=== PATIENT | male | born 1950 | race Caucasian/White ===

== ENCOUNTER 2019-02-13 12:55 | Inpatient (IN) | payer MEDICARE, MEDICAID ==
[~2019-02-13] VITALS: Ht 177.8 cm; Wt 141.4 kg
[2019-02-13] VITALS (10 sets, daily range): BP systolic 69–127; BP diastolic 22–74
[~2019-02-13 12:55] MED LIST: ATEN-169 PO; DILT180C66 PO; FOLI1CAP PO; FURO40TA4 PO; GLIM4TAB4 PO; POTA8CAP20 PO; SIMV80TA2 PO; VITC500T PO; [UNRECOGNIZED DRUG - CODE] PO
[2019-02-13] MEDS ORDERED: diltiazem 5mg/ml 5ml inj. IV ONE ×2 (13:30→14:25)
[2019-02-13] MEDS ORDERED: piperacillin/tazo 3.375gm/50ml 50 ML IV ONE (13:40)
[2019-02-13] MEDS ORDERED: vancomycin/NS 1 GM ADD-VANTAGE 250 ML IV ONE (13:40)
[2019-02-13 14:03] LABS: PARTIAL THROMBOPLASTIN TIME 21 SECONDS (22-32)
[2019-02-13 14:04] LABS: ALANINE AMINOTRANSFERASE 54 U/L (12-78); ALBUMIN 2.1 G/DL (3.4-5.0); ALBUMIN/GLOBULIN RATIO 0.4 (1.1-1.5); ALKALINE PHOSPHATASE 166 IU/L (46-116); ANION GAP 10 (8-16); BILIRUBIN,TOTAL 0.8 MG/DL (0.1-1.0); BLOOD UREA NITROGEN 51 MG/DL (7-18); BUN/CREATININE RATIO 7.3 (5.4-32.0); CALCIUM 8.9 MG/DL (8.5-10.1); CHLORIDE 93 MMOL/L (99-107); CREATININE 7.03 MG/DL (0.60-1.10); GLUCOSE 171 MG/DL (70-104); SODIUM 129 MMOL/L (135-145); TOTAL CARBON DIOXIDE 26.5 MMOL/L (24-32); TOTAL PROTEIN 7.9 G/DL (6.4-8.2); eGFR 8 ML/MIN
[2019-02-13 14:07] LABS: ASPARTATE AMINO TRANSFERASE 60 U/L (10-37); POTASSIUM 4.9 MMOL/L (3.5-5.1)
[2019-02-13 14:14] LABS: MAGNESIUM 1.9 MG/DL (1.5-2.4)
[2019-02-13] MEDS ORDERED: diltiazem-D5W 125mg/125ml 125 ML IV SCH (14:25)
[2019-02-13 14:27] LABS: C-REACTIVE PROTEIN 28.92 MG/DL (0.0-0.5)
[2019-02-13] MEDS ORDERED: diltiazem-NS 100mg/100ml 100 ML IV SCH (14:28)
[2019-02-13 14:42] LABS: BASOPHILS # (AUTO) 0.3 X10'3 (0-0.2); BASOPHILS % (AUTO) 0.9 % (0-1); EOSINOPHILS % (AUTO) 0.1 % (0-6); HEMATOCRIT 33.5 % (42.0-52.0); HEMOGLOBIN 11.2 g/dl (14.0-17.9); LYMPHOCYTES # (AUTO) 0.9 X10'3 (1.1-4.8); LYMPHOCYTES % (AUTO) 2.5 % (21-51); MEAN CORPUSCULAR HEMOGLOBIN 30.7 PG (27.0-31.0); MEAN CORPUSCULAR HGB CONC 33.3 g/dL (33.0-36.5); MEAN PLATELET VOLUME 8.6 FL (7.4-10.4); MONOCYTES # (AUTO) 2.9 X10'3 (0-0.9); NEUTROPHILS # (AUTO) 32.7 X10'3 (1.8-7.7); NEUTROPHILS % (AUTO) 88.5 % (42-75); PLATELET COUNT 380 X10'3 (140-440); RED BLOOD COUNT 3.64 X10'6 (4.70-6.10); RED CELL DISTRIBUTION WIDTH 14.2 % (11.5-14.5)
[2019-02-13 14:43] LABS: WHITE BLOOD COUNT 36.9 X10'3 (4.5-11.0)
[2019-02-13] MEDS ORDERED: INSU100V11 SQ (15:13)
[2019-02-13] MEDS ORDERED: INSU100V9 SQ (15:13)
[2019-02-13] MEDS ORDERED: acetaminophen 325mg tablet PO PRN (15:25)
[2019-02-13] MEDS ORDERED: bisacodyl 10mg suppository rectal RC PRN (15:25)
[2019-02-13] MEDS ORDERED: ondansetron/PF 4mg/2ml inj IV ONE (15:30)
[2019-02-13] MEDS: ondansetron/PF 4mg/2ml inj IV PRN (15:32)
[2019-02-13 15:39] LABS: TOTAL CELLS COUNTED 100
[2019-02-13 15:40] LABS: PLATELET ESTIMATE NORMAL; ROULEAUX 1+
--- NOTE | 2019-02-13 15:46 | NUR ---
Spoke with RUNNER MAN Nemi and gave report on pt's current status. Nemi asked for pt to be made NPO and for preop checklist to be completed as possible.
[2019-02-13 15:47] LABS: HEMOGLOBIN A1C 6.5 % (4.5-6.2)
--- NOTE | 2019-02-13 15:55 | NUR ---
Used surgical prep wipes on pt's L leg from below the thigh to toes.
[2019-02-13] MEDS ORDERED: iohexol 300mg/ml 100ml inj. ONE (16:07)
--- NOTE | 2019-02-13 16:22 | NUR ---
Spoke with MD Spears about pt's room assignment as his admit order was for ortho/neuro and non-tele. MD Spears ordered pt to PCU with tele. Pt has [employer] running.
--- NOTE | 2019-02-13 16:55 | NUR ---
Patient in room ED 12. I have received report from Fernie GOMEZ and had the opportunity to ask questions and assume patient care.
--- NOTE | 2019-02-13 16:55 | NUR ---
Received patient from ED. Patient vitals taken and stable. Bedside monitor placed, Cardizem drip running. Patient oriented to room and call light.
[2019-02-13] MEDS ORDERED: ringers solution, lacted 1,000 ML IV SCH (16:57)
[2019-02-13] MEDS ORDERED: morphine 4 MG/ML inj SYRINge IV PRN ×2 (17:00)
[2019-02-13] MEDS ORDERED: proCHLORperazine 10 MG/2 ml inj IV PRN (17:00)
[2019-02-13] MEDS ORDERED: ondansetron/PF 4mg/2ml inj IV PRN (17:00)
[2019-02-13] MEDS ORDERED: meperidine/PF 25mg/ml syringe IV PRN ×3 (17:00)
--- NOTE | 2019-02-13 18:08 | NUR ---
Problems reprioritized. Patient report given, questions answered & plan of care reviewed with Nilesh RN.
--- NOTE | 2019-02-13 18:15 | NUR ---
Patient in room PCU 3009. I have received report from Yen Porras RN and had the opportunity to ask questions and assume patient care.
[2019-02-13] MEDS ORDERED: ePHEDrine 50MG/ML INJ. ONE (19:02)
--- NOTE | 2019-02-13 19:05 | NUR ---
pt taken off unit to OR with OR staff.
[2019-02-13] MEDS ORDERED: fentaNYL/PF 50MCG/1 ML 2ML syringe ONE (19:20)
[2019-02-13] MEDS ORDERED: MIDAZolam 5mg/5ml vial ONE (19:22)
[2019-02-13] MEDS ORDERED: albumin (Human) 5% 250ml 500 ML IV ONE (20:40)
[2019-02-13] MEDS ORDERED: albumin (Human) 5% 250ml 250 ML IV ONE (20:50)
[2019-02-13] MEDS ORDERED: temazepam 15mg capsule PO PRN (21:00)
[2019-02-13] MEDS ORDERED: albumin (human) 25% 100 ML IV solution IV ONE ×2 (21:00)
[2019-02-13 21:27] LABS: BASOPHILS # (AUTO) 0.1 X10'3 (0-0.2); BASOPHILS % (AUTO) 0.4 % (0-1); EOSINOPHILS % (AUTO) 0.2 % (0-6); HEMATOCRIT 27.6 % (42.0-52.0); HEMOGLOBIN 9.4 g/dl (14.0-17.9); LYMPHOCYTES # (AUTO) 1.3 X10'3 (1.1-4.8); LYMPHOCYTES % (AUTO) 4.6 % (21-51); MEAN CORPUSCULAR HGB CONC 33.9 g/dL (33.0-36.5); MEAN CORPUSCULAR VOLUME 91.5 FL (78-98); MEAN PLATELET VOLUME 8.4 FL (7.4-10.4); MONOCYTES # (AUTO) 2.4 X10'3 (0-0.9); MONOCYTES % (AUTO) 8.7 % (2-12); NEUTROPHILS # (AUTO) 23.5 X10'3 (1.8-7.7); NEUTROPHILS % (AUTO) 86.1 % (42-75); PLATELET COUNT 326 X10'3 (140-440); RED BLOOD COUNT 3.02 X10'6 (4.70-6.10); RED CELL DISTRIBUTION WIDTH 14.3 % (11.5-14.5)
[2019-02-13 21:31] LABS: WHITE BLOOD COUNT 27.3 X10'3 (4.5-11.0)
[2019-02-13 21:39] LABS: ALANINE AMINOTRANSFERASE 40 U/L (12-78); ALBUMIN/GLOBULIN RATIO 0.5 (1.1-1.5); ALKALINE PHOSPHATASE 123 IU/L (46-116); ANION GAP 8 (8-16); ASPARTATE AMINO TRANSFERASE 34 U/L (10-37); BILIRUBIN,TOTAL 0.7 MG/DL (0.1-1.0); BLOOD UREA NITROGEN 55 MG/DL (7-18); BUN/CREATININE RATIO 7.3 (5.4-32.0); CALCIUM 7.7 MG/DL (8.5-10.1); CHLORIDE 97 MMOL/L (99-107); CREATININE 7.49 MG/DL (0.60-1.10); GLUCOSE 183 MG/DL (70-104); POTASSIUM 4.6 MMOL/L (3.5-5.1); SODIUM 131 MMOL/L (135-145); TOTAL CARBON DIOXIDE 26.2 MMOL/L (24-32); TOTAL PROTEIN 6.1 G/DL (6.4-8.2); eGFR 7 ML/MIN
[2019-02-13 21:43] LABS: TROPONIN I 0.29 NG/ML (0.0-0.05)
[2019-02-13] MEDS ORDERED: normal saline 1000ml 1,000 ML IVB ONE (21:52)
--- NOTE | 2019-02-13 22:17 | NUR ---
Patient arrived to unit via hospital bed accompanied by OR staff and anesthesiologist at 2029. BP low via automatic bp cuff, currently 69/32. Anesthesiologist Arthur SÁNCHEZ at bedside, order given for 2 bottles 50% albumin. MD stated to place patient in trendelenberg position, administered 1ml ephedrine via PIV, BP still low after 5 minute BP check. April Melissa SEED TESTER called and notified of patient's arrival and current hypotension. Patient otherwise in no apparent distress, alert/oriented x4, opens eyes spontaneously and follows commands. No pain at this time, patient reports no sensation below his hips. HR in mid 80s in atrial fibrillation, currently on cardizem drip. left bedside, April Melissa SEED TESTER arrived to bedside to assess patient. Dr. Spears notified by April regarding patient's hypotension, order received to administer 300 ml of 25% albumin. Albumin administered as ordered, BP still low at 90/36. Order then received for 1L NS, currently infusing. BP now at 109/45 wit MAP 66. Will continue to monitor patient closely.
[2019-02-13] MEDS: docusate sod 100mg capsule PO SCH (22:24)
[2019-02-13] MEDS: heparin, porcine 5000 units/ml vial SQ SCH (22:28)
[2019-02-13] MEDS: HYDROmorphone inj. 0.5 MG/0.5 ML DISP.SYRIN IV PRN ×2 (23:16→23:46)
[2019-02-14] VITALS (20 sets, daily range): BP systolic 90–154; BP diastolic 27–70
[2019-02-14] MEDS: HYDROcodone/acetaminophen 5mg/325mg tablet PO PRN ×4 (01:26→15:39)
[2019-02-14] MEDS: piperacillin/tazo 3.375gm/50ml 50 ML IV SCH ×2 (01:26→15:40)
[2019-02-14] MEDS: ondansetron/PF 4mg/2ml inj IV PRN (01:26)
[2019-02-14 05:22] LABS: BASOPHILS # (AUTO) 0.1 X10'3 (0-0.2); BASOPHILS % (AUTO) 0.4 % (0-1); EOSINOPHILS # (AUTO) 0.1 X10'3 (0-0.9); EOSINOPHILS % (AUTO) 0.5 % (0-6); HEMATOCRIT 26.1 % (42.0-52.0); HEMOGLOBIN 8.8 g/dl (14.0-17.9); LYMPHOCYTES # (AUTO) 1.3 X10'3 (1.1-4.8); LYMPHOCYTES % (AUTO) 5.3 % (21-51); MEAN CORPUSCULAR HEMOGLOBIN 31.1 PG (27.0-31.0); MEAN CORPUSCULAR HGB CONC 33.6 g/dL (33.0-36.5); MEAN CORPUSCULAR VOLUME 92.5 FL (78-98); MEAN PLATELET VOLUME 8.6 FL (7.4-10.4); MONOCYTES # (AUTO) 2.1 X10'3 (0-0.9); MONOCYTES % (AUTO) 8.8 % (2-12); NEUTROPHILS # (AUTO) 20.5 X10'3 (1.8-7.7); PLATELET COUNT 320 X10'3 (140-440); RED BLOOD COUNT 2.83 X10'6 (4.70-6.10); RED CELL DISTRIBUTION WIDTH 14.1 % (11.5-14.5); WHITE BLOOD COUNT 24.1 X10'3 (4.5-11.0)
[2019-02-14 05:32] LABS: ALBUMIN 2.8 G/DL (3.4-5.0); ANION GAP 16 (8-16); BLOOD UREA NITROGEN 57 MG/DL (7-18); BUN/CREATININE RATIO 7.3 (5.4-32.0); CALCIUM 7.9 MG/DL (8.5-10.1); CHLORIDE 96 MMOL/L (99-107); GLUCOSE 189 MG/DL (70-104); PHOSPHORUS 6.2 MG/DL (2.3-4.5); POTASSIUM 4.8 MMOL/L (3.5-5.1); SODIUM 135 MMOL/L (135-145); TOTAL CARBON DIOXIDE 23.1 MMOL/L (24-32); TROPONIN I 0.27 NG/ML (0.0-0.05); eGFR 7 ML/MIN
--- NOTE | 2019-02-14 06:22 | NUR ---
Problems reprioritized. Patient report given, questions answered & plan of care reviewed with Sarah GOMEZ.
[2019-02-14 07:22] LABS: TOTAL CELLS COUNTED 100
[2019-02-14 07:23] LABS: PLATELET ESTIMATE NORMAL; TOXIC GRANULATION 1+
[2019-02-14 07:24] LABS: POLYCHROMASIA FEW
[2019-02-14] MEDS ORDERED: SEVE800T8 PO (07:39)
[2019-02-14] MEDS ORDERED: epoetin 20,000 units/ml inj IV ONE (08:55)
[2019-02-14] MEDS ORDERED: albumin (human) 25% 100ml IV 100 ML IV PRN (08:55)
--- NOTE | 2019-02-14 08:57 | NUR ---
Pts HR sustaining 100-120's in Afib. SBP 90-110's with MAP 50-60's. Dr. Dolan aware. MD ordered to start Amiodarone gtt, no loading dose. Cardizem gtt off at 2043 last night d/t low BP. Order placed. Will administer.
[2019-02-14] MEDS ORDERED: amiodarone/D5 360MG/200ML BAG 200 ML IV SCH (09:00)
[2019-02-14] MEDS: amiodarone/D5 360MG/200ML BAG 200 ML IV SCH ×2 (09:39→15:13)
[2019-02-14] MEDS: docusate sod 100mg capsule PO SCH ×2 (09:51→21:16)
[2019-02-14] MEDS: heparin, porcine 5000 units/ml vial SQ SCH ×2 (09:51→21:28)
--- NOTE | 2019-02-14 10:14 | NUR ---
Lispro/Humalog insulin 20 units TID before meals is on pts BARTENDERS meds. Pt states he doesn't always eat three meals a day so he doesn't stick strictly to that schedule at home. Pts AM BG 172 before breakfast. He has not yet met the hospitals protocol for insulin administration. Dr. Dolan initially ordered for pt to continue with his BARTENDERS dose of insulin TID. Upon clarification of the order, stated to just follow the hospitals Hyperglycemic protocol instead of giving pts normal 20 units TID. RN to change insulin order.
[2019-02-14] MEDS ORDERED: glucagon, human recombinant 1mg kit SUBCUT PRN (10:20)
[2019-02-14] MEDS ORDERED: dextrose ORAL solution 15 GM/59 ML bottle PO PRN ×2 (10:20)
[2019-02-14] MEDS ORDERED: dextrose 50%-water 50ml dispensing syringe IV PRN ×2 (10:20)
[2019-02-14] MEDS ORDERED: MESSAGE TO PHARMACY PO ONE (10:20)
[2019-02-14] MEDS ORDERED: insulin Lispro (HumaLOG) vial - multi-dose SQ SCH (12:00)
--- NOTE | 2019-02-14 13:15 | NUR ---
WOUND VAC EDUCATION PROVIDED BY WOUND CARE 1. Patient instructed to call their primary nurse if: * They notice a change in the color or amount of the fluid in the canister. * Their wound looks more red than usual or has a foul smell. * The skin around their wound looks reddened or irritated. * The dressing feels loose or appears to be loose. * They experience any increase or changes in their pain. * The alarm will not turn off. 2. Patient instructed that they should not be disconnected from suction for more than 2 hours at a time. * If they are not able to get the suction back on, they need to remove the dressing and take all of the foam out of the wound. * Then moisten sterile gauze with normal saline and place on/in the wound. * Change the dressing once a day until arrangements have been made to replace the wound vac dressing. 3. Patient instructed to turn the wound vac machine OFF and call 911 or go to the ED immediately if their canister fills rapidly with blood. 4. If any of these occur while in the hospital tell a nurse immediately. Addendum: 02/14/19 at 1315 by David Davis RN Amended: Links added.
--- NOTE | 2019-02-14 15:01 | NUR ---
Initial Assessment: Pt is admitted to the unit with dx of food infection and sepsis.Has a medical hx of DM2, morbid obesity, right AKA, ESRD, HTN, and anemia of CKD. Pt has surgery hx of AV fistula and right AKA. Pt had left BKA yesterday.Anticipated to have HD today.LBM 02/10, Colace given 02/13 and Dolcolax PRN.Renal diet po intake with avg.75%.Noted with elevated Phos level, will monitor for phos binder per MD. Will continue to monitor. Recommendations: 1. Continue Renal Diet advance to carb controlled/renal per MD 2. Routine bowel care 3. Monitor ONS needs 4. MVI per MD for wound healing 5. Wt per rx Addendum: 02/14/19 at [address] Amended: Links added. Addendum: 02/14/19 at [address] KELLY Michaelsves
--- NOTE | 2019-02-14 15:24 | NUR ---
page sent to PICC RN - need US guided IV please. Pt difficult stick. Has 1 IV currently, need a second. Pt on Amiodarone gtt & Zosyn, not compatible. Pt to be transferred to [facility] within the hour. Addendum: 02/14/19 at 1537 by Sarah Camarillo RN PICC RN at bedside
--- NOTE | 2019-02-14 16:58 | NUR ---
pt transferred from ICU to PCU rm 3009. This RN followed pt and will continue to care for pt until shift change. Pt oriented to room and connected to mobile monitor. Amiodarone gtt now running at 0.5 or 17 ml/hr. Pt resting comfortably in bed.
[2019-02-14] MEDS ORDERED: insulin glargine (Lantus) pen - multi-dose SQ SCH (21:00)
[2019-02-14] MEDS ORDERED: atorvastatin 20mg tablet PO SCH (21:00)
[2019-02-14] MEDS: lactobacillus rhamnosus 10,000 MMU CELLS/CAPSULE PO SCH (21:17)
[2019-02-14] MEDS: HYDROmorphone 1 mg/ml syringe IV PRN ×2 (21:20→21:21)
[2019-02-15] VITALS (11 sets, daily range): BP systolic 89–140; BP diastolic 36–123
[2019-02-15] MEDS ORDERED: VANCOMYCIN LEVEL IV SCH (03:00)
[2019-02-15] MEDS: amiodarone/D5 360MG/200ML BAG 200 ML IV SCH (03:32)
[2019-02-15] MEDS: piperacillin/tazo 3.375gm/50ml 50 ML IV SCH ×2 (03:32→14:29)
[2019-02-15 03:45] LABS: BASOPHILS # (AUTO) 0.2 X10'3 (0-0.2); BASOPHILS % (AUTO) 0.9 % (0-1); EOSINOPHILS # (AUTO) 0.4 X10'3 (0-0.9); EOSINOPHILS % (AUTO) 2.2 % (0-6); HEMATOCRIT 27.8 % (42.0-52.0); HEMOGLOBIN 9.5 g/dl (14.0-17.9); LYMPHOCYTES % (AUTO) 5.5 % (21-51); MEAN CORPUSCULAR HEMOGLOBIN 31.4 PG (27.0-31.0); MEAN CORPUSCULAR HGB CONC 34.2 g/dL (33.0-36.5); MEAN CORPUSCULAR VOLUME 91.8 FL (78-98); MEAN PLATELET VOLUME 8.2 FL (7.4-10.4); MONOCYTES # (AUTO) 1.9 X10'3 (0-0.9); MONOCYTES % (AUTO) 10.6 % (2-12); NEUTROPHILS # (AUTO) 14.9 X10'3 (1.8-7.7); NEUTROPHILS % (AUTO) 80.8 % (42-75); PLATELET COUNT 379 X10'3 (140-440); RED BLOOD COUNT 3.03 X10'6 (4.70-6.10); RED CELL DISTRIBUTION WIDTH 14.1 % (11.5-14.5); WHITE BLOOD COUNT 18.4 X10'3 (4.5-11.0)
[2019-02-15 03:52] LABS: ALBUMIN 2.5 G/DL (3.4-5.0); ANION GAP 10 (8-16); BLOOD UREA NITROGEN 34 MG/DL (7-18); BUN/CREATININE RATIO 6.1 (5.4-32.0); CALCIUM 8.5 MG/DL (8.5-10.1); CHLORIDE 96 MMOL/L (99-107); GLUCOSE 179 MG/DL (70-104); MAGNESIUM 2.1 MG/DL (1.5-2.4); PHOSPHORUS 6.1 MG/DL (2.3-4.5); POTASSIUM 4.5 MMOL/L (3.5-5.1); SODIUM 134 MMOL/L (135-145); TOTAL CARBON DIOXIDE 27.7 MMOL/L (24-32); VANCOMYCIN,RANDOM 6.3 UG/ML; eGFR 10 ML/MIN
--- NOTE | 2019-02-15 06:00 | NUR ---
Patient in room PCU 3009. I have received report from Carlos Manuel GOMEZ and had the opportunity to ask questions and assume patient care.
[2019-02-15] MEDS ORDERED: furosemide 20MG tablet PO SCH (08:00)
[2019-02-15] MEDS: lactobacillus rhamnosus 10,000 MMU CELLS/CAPSULE PO SCH (08:21)
[2019-02-15] MEDS: heparin, porcine 5000 units/ml vial SQ SCH (08:21)
[2019-02-15] MEDS: docusate sod 100mg capsule PO SCH (08:22)
[2019-02-15] MEDS: insulin Lispro (HumaLOG) vial - multi-dose SQ SCH ×2 (08:32→13:40)
--- NOTE | 2019-02-15 13:51 | NUR ---
Wound consult:KELLY acknowledged the wound. Pt is eating on avg.50-75%, recommend ONS if avg. po intake remains low. Provide high protein diet education prior to dc. Initial Assessment: Pt is admitted to the unit with dx of food infection and sepsis.Has a medical hx of DM2, morbid obesity, right AKA, ESRD, HTN, and anemia of CKD. Pt has surgery hx of AV fistula and right AKA. Pt had left BKA yesterday.Anticipated to have HD today.LBM 02/10, Colace given 02/13 and Dolcolax PRN.Renal diet po intake with avg.75%.Noted with elevated Phos level, will monitor for phos binder per MD. Will continue to monitor. Recommendations: 1. Continue Renal Diet advance to carb controlled/renal per MD 2. Routine bowel care 3. Monitor ONS needs 4. MVI per MD for wound healing 5. Wt per rx Addendum: 02/15/19 at [address] Amended: Links added. Addendum: 02/15/19 at [address] KELLY Michaelsves
--- NOTE | 2019-02-15 16:05 | NUR ---
Pt DC'd to [facility]. Report called to Solo at [facility]. Pt's belongings gathered and sent with Pt. Both IV's kept in place. Prado Catheter kept in place. Pt stable at DC, Vitals WNL except HR in the low 100's, MD aware. Wound vac sent with Pt, attached to left BKA. Pt wheeled down to lobby on [address] by [facility] staff. Pt left with [facility] staff en route to [facility].
--- NOTE | 2019-02-15 16:05 | NUR ---
Pt DC'd to [facility]
--- NOTE | 2019-02-15 16:39 | NUR ---
WOUND VAC EDUCATION PROVIDED BY WOUND CARE 1. Patient instructed to call the Wound Center or their Home Health Agency immediately if: * They notice a change in the color or amount of the fluid in the canister. * Their wound looks more red than usual or has a foul smell. * The skin around their wound looks reddened or irritated. * The dressing feels loose or appears to be loose. * They experience any increase or changes in their pain. * The alarm will not turn off. 2. Patient instructed that they should not be disconnected from suction for more than 2 hours at a time. * If they are not able to get the suction back on, they need to remove the dressing and take all of the foam out of the wound. * Then moisten sterile gauze with normal saline and place on/in the wound. * Change the dressing once a day until arrangements have been made to replace the wound vac dressing. 3. Patient instructed to turn the wound vac machine OFF and call 911 or go to the ED immediately if their canister fills rapidly with blood. 4. If any of these occur while in the hospital tell a nurse immediately. Addendum: 02/15/19 at 1639 by Hallie Mendoza RN Amended: Links added.
== END 2019-02-15 16:00 | DRG 853 ==
LOC: ER 12:55 → ED HOLD 15:40 → PCU 3S 16:55 → ICU 2S 21:10 → PCU 3S 02-14 16:24
PROVIDERS: ADMIT Internal Medicine Critical Care Medicine; ATTEND Internal Medicine Critical Care Medicine
PROC: 5A1D70Z Performance of Urinary Filtration, Intermittent, Less than 6 Hours Per Day (ICD-10-PCS; 2019-02-13)
PROC: 0Y6J0Z1 Detachment at Left Lower Leg, High, Open Approach (ICD-10-PCS; principal; 2019-02-13 19:02)
PROC: 5A1D70Z Performance of Urinary Filtration, Intermittent, Less than 6 Hours Per Day (ICD-10-PCS; 2019-02-14)
DX: A41.9 Sepsis, unspecified organism (principal); N18.6 End stage renal disease; L03.116 Cellulitis of left lower limb; I12.0 Hypertensive chronic kidney disease with stage 5 chronic kidney disease or end stage renal disease; E87.1 Hypo-osmolality and hyponatremia; E11.52 Type 2 diabetes mellitus with diabetic peripheral angiopathy with gangrene; Z68.41 Body mass index [BMI] 40.0-44.9, adult; E11.621 Type 2 diabetes mellitus with foot ulcer; D63.1 Anemia in chronic kidney disease; E11.21 Type 2 diabetes mellitus with diabetic nephropathy; E11.22 Type 2 diabetes mellitus with diabetic chronic kidney disease; E11.42 Type 2 diabetes mellitus with diabetic polyneuropathy; E11.610 Type 2 diabetes mellitus with diabetic neuropathic arthropathy; E66.01 Morbid (severe) obesity due to excess calories; I48.91 Unspecified atrial fibrillation; I89.0 Lymphedema, not elsewhere classified; L97.529 Non-pressure chronic ulcer of other part of left foot with unspecified severity; Z79.4 Long term (current) use of insulin; Z79.82 Long term (current) use of aspirin; Z89.511 Acquired absence of right leg below knee; Z89.611 Acquired absence of right leg above knee; Z99.2 Dependence on renal dialysis; Z88.1 Allergy status to other antibiotic agents
CPT/HCPCS: 36415; 71045; 73590; 73630; 73701; 76937; 80048; 80053; 80202; 82948; 83036; 83605; 83735; 84100; 84145; 84484; 85025; 85610; 85730; 86140; 86885; 86900; 86901; 87040; 87077; 87081; 87186; 88307; 88311; 93005; 93306; 96365; 96368; 96376; 97110; 97161; 97530; 99291; A4618; A6550; A7000; G0257; G0378; J1170; J1644; J1815; J2250; J2405; J2543; J3010; J3370; J3490; J7120; P9045; P9047; Q4081; Q9967

== ENCOUNTER 2019-05-05 05:52 | Day surgery (SDC) | payer OTHER ==
[~2019-05-05] VITALS: Ht 172.7 cm; Wt 137.9 kg
[~2019-05-05 05:52] MED LIST changes: -ATEN-169 PO; -DILT180C66 PO; -FOLI1CAP PO; -GLIM4TAB4 PO; +INSU100V11 SQ; +INSU100V9 SQ; -POTA8CAP20 PO; -VITC500T PO; -[UNRECOGNIZED DRUG - CODE] PO
[2019-05-05] MEDS ORDERED: normal saline 1000ml 1,000 ML IV PRN (06:15)
[2019-05-05 06:34] VITALS: BP 123/70
[2019-05-05 07:04] LABS: EOSINOPHILS # (AUTO) 0.3 X10'3 (0-0.9); LYMPHOCYTES # (AUTO) 1.5 X10'3 (1.1-4.8); WHITE BLOOD COUNT 7.2 X10'3 (4.5-11.0)
[2019-05-05 07:05] LABS: BASOPHILS # (AUTO) 0.1 X10'3 (0-0.2); BASOPHILS % (AUTO) 1.6 % (0-1); EOSINOPHILS % (AUTO) 4.4 % (0-6); HEMATOCRIT 38.4 % (42.0-52.0); HEMOGLOBIN 12.7 g/dl (14.0-17.9); LYMPHOCYTES % (AUTO) 21.5 % (21-51); MEAN CORPUSCULAR HEMOGLOBIN 30.1 PG (27.0-31.0); MEAN CORPUSCULAR VOLUME 91.4 FL (78-98); MONOCYTES # (AUTO) 1.2 X10'3 (0-0.9); MONOCYTES % (AUTO) 16.9 % (2-12); NEUTROPHILS % (AUTO) 55.6 % (42-75); PLATELET COUNT 256 X10'3 (140-440); RED BLOOD COUNT 4.21 X10'6 (4.70-6.10)
[2019-05-05 07:14] LABS: ALBUMIN 2.8 G/DL (3.4-5.0); ANION GAP 8 (8-16); BLOOD UREA NITROGEN 15 MG/DL (7-18); BUN/CREATININE RATIO 3.5 (5.4-32.0); CALCIUM 10.3 MG/DL (8.5-10.1); CHLORIDE 97 MMOL/L (99-107); CREATININE 4.24 MG/DL (0.60-1.10); GLUCOSE 108 MG/DL (70-104); POTASSIUM 4.1 MMOL/L (3.5-5.1); SODIUM 135 MMOL/L (135-145); TOTAL CARBON DIOXIDE 30.1 MMOL/L (24-32); eGFR 14 ML/MIN
[2019-05-05] MEDS ORDERED: ATOR80TA PO (07:30)
[2019-05-05] MEDS ORDERED: LORA10TA61 PO (07:30)
[2019-05-05] MEDS ORDERED: AMIO200T61 PO (07:30)
[2019-05-05] MEDS ORDERED: TEMA15CA PO (07:30)
[2019-05-05] MEDS ORDERED: [UNRECOGNIZED DRUG - CODE] IV (07:30)
[2019-05-05] MEDS ORDERED: MELA3TAB64 PO (07:30)
[2019-05-05] MEDS ORDERED: HYDR-4383 PO (07:44)
[2019-05-05] MEDS ORDERED: BISA10SU60 RC (07:44)
[2019-05-05] MEDS ORDERED: POLY17PO10 PO (07:44)
[2019-05-05] MEDS ORDERED: DOCU250C15 PO (07:44)
[2019-05-05] MEDS ORDERED: ACET-2119 PO (07:44)
[2019-05-05] MEDS ORDERED: BENZ1LOZ61 PO (07:44)
[2019-05-05] MEDS ORDERED: LIDOcaine 1%/PF 5ML 10 MG/ML VIAL ONE (08:30)
[2019-05-05] MEDS ORDERED: iohexol 300mg/ml 100ml inj. ONE (08:31)
[2019-05-05] MEDS ORDERED: heparin 1,000 UNITS/NS 500ml 500 ML ONE (08:31)
[2019-05-05] MEDS ORDERED: midazolam 2 mg/2 ml injection ONE (08:31)
[2019-05-05] MEDS ORDERED: fentaNYL/PF 50MCG/1 ML 2ML syringe ONE (08:31)
[2019-05-05] MEDS ORDERED: normal saline 1000ml 1,000 ML IV SCH (09:06)
[2019-05-05 09:20] LABS: PLATELET ESTIMATE NORMAL
[2019-05-05 09:21] LABS: ACANTHOCYTES FEW; ANISOCYTOSIS 2+; BURR CELLS 1+; POLYCHROMASIA 1+; SCHISTOCYTES FEW
[2019-05-05 10:05] VITALS: BP 115/53
[2019-05-05 10:15] VITALS: BP 118/57
[2019-05-05 10:30] VITALS: BP 121/52
[2019-05-05 10:45] VITALS: BP 112/74
== END 2019-05-05 11:52 ==
LOC: SSTAY O 05:52
PROVIDERS: ATTEND Radiology Diagnostic Radiology
DX: T82.898A Other specified complication of vascular prosthetic devices, implants and grafts, initial encounter (principal); E11.22 Type 2 diabetes mellitus with diabetic chronic kidney disease; I12.0 Hypertensive chronic kidney disease with stage 5 chronic kidney disease or end stage renal disease; D63.1 Anemia in chronic kidney disease; N18.6 End stage renal disease; Z89.611 Acquired absence of right leg above knee; Z79.899 Other long term (current) drug therapy; Z88.1 Allergy status to other antibiotic agents; Y83.2 Surgical operation with anastomosis, bypass or graft as the cause of abnormal reaction of the patient, or of later complication, without mention of misadventure at the time of the procedure; Y92.89 Other specified places as the place of occurrence of the external cause
CPT/HCPCS: 36415; 36901; 80048; 82948; 85025; 85610; 99152; 99153; C1769; C1894; J1644; J2250; J3010; J7030; Q9967